=== PATIENT | male | born 1960 | race Caucasian/White ===

== ENCOUNTER → 2020-03-17 | Outpatient (CLI) | payer OTHER ==
[2020-03-17 09:51] LABS: BASO % 1 % (0-3); EOS # 0.2 x10^3/uL (0.0-0.7); EOS % 3 % (0-3); HEMATOCRIT 43.5 % (39.0-53.0); HEMOGLOBIN 14.7 g/dL (13.0-17.5); LYMPH # 1.6 x10^3/uL (1.0-4.8); LYMPH % 27 % (24-48); MEAN CORPUSCULAR HEMOGLOBIN 30 pg (25-35); MEAN CORPUSCULAR HGB CONC 34 g/dL (31-37); MEAN CORPUSCULAR VOLUME 90 fL (79-100); MONO # 0.5 x10^3/uL (0.0-1.1); MONO % 9 % (0-9); NEUT # 3.7 x10^3/uL (1.8-7.7); NEUT % 61 % (31-73); PLATELET COUNT 284 x10^3/uL (140-400); RED BLOOD COUNT 4.83 x10^6/uL (4.30-5.70); RED CELL DISTRIBUTION WIDTH 12.8 % (11.5-14.5)
[2020-03-17 10:02] LABS: PROTHROMBIN TIME PATIENT 12.4 SEC (11.7-14.0)
[2020-03-17 10:03] LABS: ALBUMIN 4.1 g/dL (3.4-5.0); C-REACTIVE PROTEIN 1.8 mg/L (0-3.3); CALCIUM 9.1 mg/dL (8.5-10.1); CREATININE 1.4 mg/dL (0.7-1.3); GFR 51.7
--- NOTE | 2020-03-17 11:36 | EKG ---
[facility] [address] [place] [id number] Test Date: 2020-03-17 Test Time: 11:33:44 Pat Name: YADIEL BLEDSOE Department: Room: Gender: Manager Background: : 1960 Requested By: TIESHA CESAR Order Number: [id number] Reading MD: Zana Mares Measurements Intervals [place] Rate: 80 P: 45 AL: 164 QRS: 54 QRSD: 96 T: 24 QT: 364 QTc: 423 Interpretive Statements SINUS RHYTHM SLIGHT NONSPECIFIC ST CHANGES RI6.02 No previous ECG available for comparison Electronically Signed On 03-18-2020 10:23:17 CDT by Zana Mares
--- NOTE | 2020-03-17 13:59 | RAD ---
PA and lateral chest x-ray without comparison for preop evaluation. FINDINGS: The lungs are clear. The cardiomediastinum is grossly unremarkable. No significant soft tissue or osseous abnormalities. IMPRESSION: 1. Normal chest x-ray. Electronically signed by: Kendall Espinosa MD (03/17/2020 1:56 PM) [id number]
[2020-03-18 03:08] LABS: HEMOGLOBIN A1C 5.6 % (4.8-5.6)
== END ==
LOC: SURGPAT 13:54
PROVIDERS: ATTEND Orthopaedic Surgery
DX: Z01.812 Encounter for preprocedural laboratory examination (principal); M17.11 Unilateral primary osteoarthritis, right knee; Z20.828 Contact with and (suspected) exposure to other viral communicable diseases; Z96.651 Presence of right artificial knee joint
CPT/HCPCS: 36415; 71046; 80048; 82040; 82306; 83036; 85025; 85610; 85730; 86140; 87641; 93005

== ENCOUNTER → 2020-03-28 | Outpatient (CLI) | payer OTHER ==
[~2020-03-28] MED LIST: FEXO180T81 PO; GLUC1TAB69 PO; MELO15TA23 PO; MULT-735 PO; OXYC5CAP PO; WARF-31 PO; WARF4TAB64 PO
== END ==
LOC: LAB 14:37
PROVIDERS: ATTEND Orthopaedic Surgery
DX: Z01.812 Encounter for preprocedural laboratory examination (principal); M17.11 Unilateral primary osteoarthritis, right knee; Z96.651 Presence of right artificial knee joint; Z20.828 Contact with and (suspected) exposure to other viral communicable diseases
CPT/HCPCS: C9803; U0003

== ENCOUNTER 2020-04-01 10:25 | Observation (INO) | payer OTHER ==
[~2020-04-01] VITALS: Ht 180.3 cm; Wt 92.5 kg
[~2020-04-01 10:25] MED LIST changes: +ACETAMINOPHEN 500 MG TABLET PO PRN; +GABAPENTIN 300 MG CAPSULE. PO PRN; +HYDROmorphone 2 MG/ML VIAL IV PRN; +IV RINGERS,LACTATED 1000ML 1,000 ML IV SCH; +LIDOCAINE 1% PF 2 ML VIAL. ID PRN; -MELO15TA23 PO; +MELOXICAM 7.5 MG TABLET PO PRN; +MIDAZOLAM HCL/PF 2 MG/2 ML VIAL. ONE; +MORPHINE SULFATE 5 MG, KETOROLAC 30MG VIAL 30 MG, ROPIVacaine 0.5% PF 60 ML, EPINEPHrin... INT ART ONE; +ONDANSETRON PF 4 MG/2 ML VIAL. IV PRN; -OXYC5CAP PO; +PROCHLORPERAZINE 10 MG/2 ML VIAL. IV PRN; +ROCURONIUM 50 MG/5 ML VIAL. ONE; +TRANEXAMIC ACID 1,000 MG in IV NS 50ML -- 1ST BAG INJ ONE; +TRANEXAMIC ACID 1,000 MG in IV NS 50ML -- 2ND BAG INJ ONE; -WARF-31 PO; -WARF4TAB64 PO; +fentaNYL PF VIAL 100 MCG/2 ML VIAL IV PRN; +fentaNYL PF VIAL 250 MCG/5 ML VIAL ONE
[2020-04-01] MEDS ORDERED: WARF-31 PO (11:06)
[2020-04-01] MEDS ORDERED: MELO15TA23 PO (11:07)
[2020-04-01] MEDS ORDERED: LIDOCAINE 2% PF 5 ML VIAL. ONE (11:30)
[2020-04-01] MEDS ORDERED: PROPOFOL 10 MG/ML (20ML) VIAL. IV ONE (11:30)
[2020-04-01 11:40] LABS: PROTHROMBIN TIME PATIENT 12.7 SEC (11.7-14.0)
[2020-04-01] MEDS ORDERED: VANCOMYCIN 1 GM VIAL. ONE (12:50)
--- NOTE | 2020-04-01 12:56 | HP ---
ADMIT DATE: 04/01/2020 CHIEF COMPLAINT: Right knee degenerative joint disease and pain. HISTORY OF PRESENT ILLNESS: The patient is a very active 60-year-old male, severely worsening knee pain over the past couple of years that has been only responsive to corticosteroid injections for a very short period of time. He has had no significant relief at all with viscosupplementation injections. He has modified his activities for lesser impact, but still wishes to bicycle and is extremely limited by his right knee pain. PAST MEDICAL HISTORY: Denies any. PAST SURGICAL HISTORY: Significant for previous right knee arthroscopies x 2 and left shoulder surgery. Father is . FAMILY HISTORY: Mother alive and healthy. SOCIAL HISTORY: Denies smoking and drug use. Occasional alcohol consumption socially couple times a month. He takes some multivitamins, ibuprofen and Aleve. ALLERGIES: He has no known drug allergies. REVIEW OF SYSTEMS: Denies any chest pain, shortness of breath, recent febrile illness or other constitutional symptoms. PHYSICAL EXAMINATION: VITAL SIGNS: Per admission sheet. HEENT: Atraumatic, normocephalic. HEART: Regular rate and rhythm. LUNGS: Clear to auscultation bilaterally. ABDOMEN: Benign. EXTREMITIES: Examination of the knee reveals left knee motion a little over 0-120 degrees and range of motion right knee is 0-110 degrees with discomfort at terminal flexion. He has no patellofemoral instability or tilt. Ligaments are otherwise stable. IMAGING: X-rays show advanced tricompartmental degenerative disease. IMPRESSION: Tricompartmental osteoarthritis, right knee. TREATMENT PLAN: I had gone over with him all the nonoperative treatment options, which he has essentially exhausted at this point including anti-inflammatory use, glucosamine topicals, injections and due to instability, bracing really is not expected to be a help. We talked the risks, benefits, postoperative course of total knee arthroplasty, possibility of premature wear or loosening, infection, continued pain, nerve or blood vessel damage, medical or other anesthetic complications among others and the usual recovery process and restrictions associated with the postoperative recovery process. All his questions were answered. He wishes to proceed with surgical evaluation and treatment, which will include [facility] observation to follow up. TIESHA CESAR MD DR: LOUISE/giovany JOB#: [id number] / [id number]
[2020-04-01] MEDS ORDERED: ONDANSETRON PF 4 MG/2 ML VIAL. ONE (13:05)
[2020-04-01] MEDS ORDERED: SEVOFLURANE > 120 MINUTES. IH ONE (13:05)
[2020-04-01] MEDS ORDERED: DEXAMETHASONE SOD PHOS 4 MG/ML VIAL ONE (13:05)
[2020-04-01] MEDS ORDERED: ROCURONIUM 50 MG/5 ML VIAL. ONE (13:32)
[2020-04-01] MEDS ORDERED: GLYCOPYRROLATE 1 MG/5 ML VIAL. ONE (14:48)
[2020-04-01] MEDS ORDERED: NEOSTIGMINE METHYLSULFATE 5 MG/5 ML SYRINGE. ONE (14:48)
[2020-04-01] MEDS ORDERED: fentaNYL PF VIAL 100 MCG/2 ML VIAL ONE (15:19)
[2020-04-01] MEDS ORDERED: MORPHINE SULFATE 2 MG/ML VIAL. ONE (15:59)
[2020-04-01] MEDS: MORPHINE SULFATE 2 MG/ML VIAL. IV PRN ×2 (16:02→16:10)
[2020-04-01] MEDS ORDERED: IV NORMAL SALINE 1000ML BAG 1,000 ML IV SCH (16:36)
[2020-04-01] MEDS ORDERED: FLU VACC QS 2020-21(6MOS+)/PF 0.5 ML SYRINGE. VAX IM ONE (16:45)
[2020-04-01] MEDS ORDERED: oxyCODONE IR 5 MG TABLET PO PRN (16:45)
[2020-04-01] MEDS ORDERED: DEXTROSE 50% 25 GM / 50ML DISP.SYRIN. IV PRN (16:45)
[2020-04-01] MEDS ORDERED: 0.9 % SODIUM CHLORIDE 10 ML DISP.SYRIN. IV PRN (16:45)
[2020-04-01] MEDS ORDERED: MORPHINE SULFATE 2 MG/ML VIAL. IVP PRN (16:45)
[2020-04-01] MEDS ORDERED: diphenhydrAMINE 50 MG/ML VIAL IVP PRN (16:45)
[2020-04-01] MEDS ORDERED: fentaNYL PF VIAL 100 MCG/2 ML VIAL IVP PRN (16:45)
[2020-04-01] MEDS ORDERED: CALCIUM CARBONATE 500 MG TAB.CHEW PO PRN (16:45)
[2020-04-01] MEDS ORDERED: PROCHLORPERAZINE 5 MG TABLET. PO PRN (16:45)
[2020-04-01 17:00] VITALS: BP 133/84
[2020-04-01] MEDS: FERROUS SULFATE 325 MG TABLET. PO SCH (17:00)
--- NOTE | 2020-04-01 17:05 | RAD ---
EXAM: Right knee, 2 views. HISTORY: Arthroplasty. COMPARISON: None. FINDINGS: 2 views of the right knee are obtained. There is a right knee arthroplasty in expected. There is soft tissue gas, joint fluid and a drain due to recent surgery. IMPRESSION: Right knee arthroplasty in expected position. Electronically signed by: Obdulia Hood MD (04/01/2020 5:02 PM) [id number]
--- NOTE | 2020-04-01 17:11 | PDOC4 ---
Operative Note Operative Note Date of surgery: 04/01/2020 Preoperative diagnosis: Right knee degenerative joint disease Postoperative diagnosis: Same Operative procedure: Right total knee arthroplasty Surgeon: Jong Assistants: Tutu Uribe nurse practitioner Anesthesia: General Estimated blood loss: 25 cc Complications: None Specimens: Cartilage surfaces to pathology Drains: Hemovac drain and intra-articular catheter Operative indications: Please see my dictated preoperative history and physical and clinic notes for detailed operative indications and note to the patient is a very active 60-year-old male with severe limitations due to his knee arthritis unresponsive to nonoperative management his desire is to continue to exercise and a nonimpact type manner particularly bicycling and other activities and we had gone through the possibility of infection continued pain premature wear or loosening medical or other anesthetic complications among others reviewed the recovery process and after informed consent was obtained he agrees to proceed with surgical evaluation and treatment Operative text: Patient was identified procedure verified patient placed in the supine position on the operating table. After adequate amounts of general anesthesia were administered the right lower extremity was prepped and draped in standard sterile fashion with a thigh tourniquet. After timeout was performed patient procedure identified and verified the right lower extremity was exsanguinated by Esmarch bandage tourniquet inflated to 300 mmHg. A midline incision was made with a mid vastus extending to a medial parapatellar approach. Patella was everted fat pad was excised distal femur was drilled and the distal femur was cut with a standard cut. Proximal tibia cut was made with the extra- articular cutting jig adjusted to achieve alignment with the second toe and center of the ankle joint. Distal femur was sized at a size 6 AP and chamfer cuts were made and flexion extension balancing carried out after recutting the tibia to achieve a size 10 spacer. A size 7 tibial component was placed along with a size 6 femur [employer] journey standard component with a dished trial component with a 10 mm spacer. Excellent ligament balance and stability were noted both in flexion and extension. Osteophytes were trimmed from the patella and I elected to prepare for a 29 mm biconvex patella which had excellent tracking. He had significant synovitis and partial synovectomy was performed particularly in the worst involvement superiorly and superior laterally. Tibia was drilled and broached and femoral lugs were drilled. Trial components were removed through irrigation carried out with normal saline solution. The following components were then cemented in place with polymethylmethacrylate cement: A size 7 journey tibial component. A size 6 cruciate retaining journey 2 Oxinium femoral component. Excess cement was removed and after the trial spacer was removed, a dished spacer 10 mm thickness was locked in place. Dilute Betadine lavage was then used and followed up with normal saline solution and pulse lavage. Intra-articular mixture was injected periosteally and throughout the joint capsule. Hemovac drain and intra- articular catheter were then placed. 1 g vancomycin was placed in the knee joint and closure of the medial approach was carried out with running #1 PDS strata fix suture. Subcutaneous closure with buried Vicryl suture subcuticular closure with 3-0 strata fix Monocryl. Norma dressing was placed patient was returned to recovery room in stable condition having tolerated procedure well toes were noted to be warm pink following deflation of the tourniquet. Tutu Uribe nurse practitioner was present for the procedure and assisted in the pa tient positioning prepping draping retraction closure and dressings. TIESHA CESAR MD Apr 01, 2020 17:11
[2020-04-01 17:30] VITALS: BP 126/79
[2020-04-01] MEDS ORDERED: WARFARIN 7.5 MG TABLET. PO ONE (17:30)
--- NOTE | 2020-04-01 17:35 | NUR ---
Patient arrived around 1700 from PACU in a bed. at bedside. IV infusing in left hand without any concerns noted. Hemovac and IAC in place on right leg. ZHANE wrap covering RONY with green light flashing. Gil hose and SCD on LLE. Upon arrival to the unit the patient needed to use the restroom. He felt dizzy/nauseous upon transferring to and from the bathroom but refused nausea medication at this time as well as pain medication. BP a little low around 106/72 with a Pulse of 92. He is now sitting up in his chair eating dinner stating he is starting to feel much better. Will continue to monitor.
[2020-04-01] MEDS: KETOROLAC 30MG VIAL 30 MG, BUPIVACAINE MPF 0.25% 20 ML, EPINEPHrine 0.5 MG in TOTAL VOL... INT ART SCH (17:51)
[2020-04-01 18:00] VITALS: BP 127/82
[2020-04-01 18:30] VITALS: BP 132/80
[2020-04-01 19:30] VITALS: BP 150/83
[2020-04-01] MEDS: ZOLPIDEM 5 MG TABLET. PO PRN (22:41)
[2020-04-01 23:00] VITALS: BP 141/81
[2020-04-02] MEDS: ZOLPIDEM 5 MG TABLET. PO PRN ×2 (00:25→21:36)
[2020-04-02 03:00] VITALS: BP 127/80
[2020-04-02] MEDS: KETOROLAC 30MG VIAL 30 MG, BUPIVACAINE MPF 0.25% 20 ML, EPINEPHrine 0.5 MG in TOTAL VOL... INT ART SCH (05:08)
[2020-04-02 05:17] LABS: HEMATOCRIT 34.7 % (39.0-53.0); HEMOGLOBIN 12.1 g/dL (13.0-17.5); RED BLOOD COUNT 3.87 x10^6/uL (4.30-5.70); RED CELL DISTRIBUTION WIDTH 12.8 % (11.5-14.5); WHITE BLOOD COUNT 15.5 x10^3/uL (4.0-11.0)
[2020-04-02 05:22] LABS: PROTHROMBIN TIME PATIENT 13.8 SEC (11.7-14.0)
[2020-04-02] MEDS ORDERED: MAGNESIUM HYDROXIDE 2,400 MG/30 ML ORAL.SUSP. PO PRN (06:00)
[2020-04-02] MEDS: traMADol 50 MG TABLET PO SCH ×3 (06:14→17:04)
[2020-04-02 06:39] VITALS: BP 127/80
--- NOTE | 2020-04-02 08:00 | NUR ---
Mekhi is sitting up reading a book after eating breakfast. he denies nausea vomiting. ambulated to bathroom without complaints. will give last antibiotic; saline lock patent.
--- NOTE | 2020-04-02 08:11 | PDOC ---
ORTHO PROGRESS NOTES DATE: 04/02/20 TIME: 08:08 Subjective Patient states pain being painful during the night but it has eased up somewhat. Post-op Day: 1 Procedure Right total knee arthroplasty Vitals Vital Signs Date Time Temp Pulse Resp B/P (MAP) Pulse Ox O2 Delivery O2 Flow Rate FiO2 04/02/20 06:39 98.2 59 20 127/80 (96) 98 Room Air 98.2 04/01/20 16:10 8.0 Labs Laboratory Tests Test 04/01/20 10:45 04/02/20 04:50 Prothrombin Time 12.7 SEC (11.7-14.0) 13.8 SEC (11.7-14.0) Prothromb Time International Ratio 1.0 (0.8-1.1) 1.1 (0.8-1.1) Activated Partial Thromboplast Time 29 SEC (24-38) White Blood Count 15.5 x10^3/uL (4.0-11.0) Red Blood Count 3.87 x10^6/uL (4.30-5.70) Hemoglobin 12.1 g/dL (13.0-17.5) Hematocrit 34.7 % (39.0-53.0) Mean Corpuscular Volume 90 fL (79-100) Mean Corpuscular Hemoglobin 31 pg (25-35) Mean Corpuscular Hemoglobin Concent 35 g/dL (31-37) Red Cell Distribution Width 12.8 % (11.5-14.5) Platelet Count 284 x10^3/uL (140-400) Laboratory Tests Test 04/01/20 10:45 04/02/20 04:50 Prothrombin Time 12.7 SEC (11.7-14.0) 13.8 SEC (11.7-14.0) Prothromb Time International Ratio 1.0 (0.8-1.1) 1.1 (0.8-1.1) Activated Partial Thromboplast Time 29 SEC (24-38) White Blood Count 15.5 x10^3/uL (4.0-11.0) Red Blood Count 3.87 x10^6/uL (4.30-5.70) Hemoglobin 12.1 g/dL (13.0-17.5) Hematocrit 34.7 % (39.0-53.0) Mean Corpuscular Volume 90 fL (79-100) Mean Corpuscular Hemoglobin 31 pg (25-35) Mean Corpuscular Hemoglobin Concent 35 g/dL (31-37) Red Cell Distribution Width 12.8 % (11.5-14.5) Platelet Count 284 x10^3/uL (140-400) Notes Awake and alert sitting up in a chair at bedside Assessment and Plan Postop day #1 status post right total knee arthroplasty. Motor and sensation intact distally at the right lower extremity. Dressing is dry and intact. Up with PT today. We did discuss his use of exercise with his bicycle after recovery. RICKEY RICHTER APRN Apr 02, 2020 08:11
[2020-04-02] MEDS: MULTIVITAMIN with MINERAL TABLET. PO SCH (08:51)
[2020-04-02] MEDS: ACETAMINOPHEN 500 MG TABLET PO SCH ×3 (08:51→21:36)
[2020-04-02] MEDS: MELOXICAM 7.5 MG TABLET PO SCH (08:51)
[2020-04-02] MEDS: FERROUS SULFATE 325 MG TABLET. PO SCH ×2 (08:51→17:04)
--- NOTE | 2020-04-02 10:45 | NUR ---
sarkis is in therapy feeling lightheaded and became hypotensive. he is reclinened and blood pressure is 67/48 50. started feeling better and sat up. He immediately started feeling faint. blood pressure was 63/34 1000cc ns began at 250 cc hr and reclined. he had an episode where he became unresponsive and did not respond to pain. the episode lasted approx 10 sec. skin became cold and clammy. then woke up all of sudden and was alert and oriented x4. blood pressure was 110/63 hr 73. transferred to recliner with full body lift. placed in room at full recline.
[2020-04-02 11:02] VITALS: BP 110/74
[2020-04-02] MEDS ORDERED: IV NORMAL SALINE 1000ML BAG 1,000 ML IV ONE (11:15)
--- NOTE | 2020-04-02 11:45 | PDOC2 ---
CONSULT Date of Consult Date of Consult DATE: 04/02/20 TIME: 11:45 Reason for Consult Reason for Consult: Hypotension Referring Physician Referring Physician: Dr. Phill Sunshine Identification/Chief Complaint Chief Complaint Syncope Source Source: Caregiver, Chart review, Patient History of Present Illness Reason for Visit: Mr Enrique is a 60yo M retired [employer] with no PMHx who was admitted for right TKA for progressive OA not responsive to synthetic hyaluronic acid injections or corticosteroid injections. He is s/p TKA on 04/01/2020 and Internal Medicine has been consulted for a syncopal episode with associated hypotension. His is bedside, notes that 30 minutes after taking MVI, iron this morning his BP was in the 70s and he passed out while sitting up in his chair. He awakened after 250cc of NSS and laying supine for 15 minutes. He does note prior h/o vasovagal syncope when he was younger in the [employer]. He had a treadmill cardiac stress test negative for EKG changes last week and pre-op EKG with no abnormalities Repeat EKG today does show TWI in lead II and I. He has no CP or SOB. HR in 50s, BP 120 systolic now. Pain well controlled. has not had a BM, notes he was tania ting until he gets home, is a bit anxious. Hb post-op 12. He wants to get out of the hospital soon and get back on his bicycle Past Medical History Cardiovascular: No pertinent hx Past Surgical History Past Surgical History: Arthroscopy (Right knee x2, left shoulder), Total knee replacement (Right) Family History Family History Father , mother living Family History: Cancer (Breast in mother, throat in brother) Social History Social History Denies smoking and drug use. Occasional alcohol consumption socially couple times a month. He takes some multivitamins, ibuprofen and Aleve. No ALCOHOL: rare Drugs: None Lives: with Family Domestic Violence: Neg Current Medications Current Medications Current Medications Morphine Sulfate 5 mg/Ketorolac Tromethamine 30 mg/Ropivacaine 60 ml/Epinephrine HCl 0.5 mg/Sodium Chloride 100 ml @ 100 mls/hr 1X ONCE INT ART Last administered on 04/01/20at 14:36; Start 04/01/20 at 06:00; Stop 04/01/20 at 06:59; Status DC Ondansetron HCl (Zofran) 4 mg PRN Q6HRS PRN IV NAUSEA/VOMITING; Start 04/01/20 at 07:00; Stop 04/02/20 at 06:59; Status DC Fentanyl Citrate (Fentanyl 2ml Vial) 50 mcg PRN Q5MIN PRN IV MODERATE TO SEVERE PAIN; Start 04/01/20 at 07:00; Stop 04/02/20 at 06:59; Status DC Morphine Sulfate (Morphine Sulfate) 1 mg PRN Q10MIN PRN IV SEVERE PAIN 7-10 Last administered on 04/01/20at 16:10; Start 04/01/20 at 07:00; Stop 04/02/20 at 06:59; Status DC Ringer's Solution 1,000 ml @ 30 mls/hr Q24H IV Last administered on 04/01/20at 11:09; Start 04/01/20 at 07:00; Stop 04/01/20 at 18:59; Status DC Lidocaine HCl (Xylocaine-Mpf 1% 2ml Vial) 2 ml PRN 1X PRN ID PRIOR TO IV START; Start 04/01/20 at 07:00; Stop 04/02/20 at 06:59; Status DC Hydromorphone HCl (Dilaudid) 0.5 mg PRN Q10MIN PRN IV SEV PAIN, Second choice; Start 04/01/20 at 07:00; Stop 04/02/20 at 06:59; Status DC Prochlorperazine Edisylate (Compazine) 5 mg PACU PRN PRN IV NAUSEA, MRX1; Start 04/01/20 at 07:00; Stop 04/02/20 at 06:59; Status DC Meloxicam (Mobic) 15 mg 1X PREOP PRN PO PRIOR TO PROCEDURE Last administered on 04/01/20at 11:10; Start 04/01/20 at 06:00; Stop 04/01/20 at 18:00; Status DC Gabapentin (Neurontin) 600 mg 1X PREOP PRN PO PRIOR TO PROCEDURE Last administered on 04/01/20at 11:10; Start 04/01/20 at 06:00; Stop 04/01/20 at 18:00; Status DC Acetaminophen (Tylenol) 1,000 mg 1X PREOP PRN PO PRIOR TO PROCEDURE Last administered on 04/01/20at 11:10; Start 04/01/20 at 06:00; Stop 04/01/20 at 18:00; Status DC Cefazolin Sodium/ Dextrose 50 ml @ 100 mls/hr 1X PREOP PRN IV PRIOR TO PROCEDURE Last administered on 04/01/20at 13:00; Start 04/01/20 at 06:00; Stop 04/01/20 at 18:00; Status DC Tranexamic Acid 1000 mg/Sodium Chloride 60 ml @ 60 mls/hr 1X PERIOP ONCE INJ ; Start 04/01/20 at 06:00; Stop 04/01/20 at 06:59; Status DC Tranexamic Acid 1000 mg/Sodium Chloride 60 ml @ 60 mls/hr 1X PERIOP ONCE INJ Last administered on 04/01/20at 15:00; Start 04/01/20 at 08:00; Stop 04/01/20 at 08:59; Status DC Midazolam HCl (Versed) 2 mg STK-MED ONCE .ROUTE ; Start 04/01/20 at 07:17; Stop 04/01/20 at 07:17; Status DC Fentanyl Citrate (Fentanyl 5ml Vial) 250 mcg STK-MED ONCE .ROUTE ; Start 04/01/20 at 07:17; Stop 04/01/20 at 07:17; Status DC Rocuronium [place] (Zemuron) 50 mg STK-MED ONCE .ROUTE ; Start 04/01/20 at 07:17; Stop 04/01/20 at 07:18; Status DC Lidocaine HCl (Lidocaine Pf 2% Vial) 5 ml STK-MED ONCE .ROUTE ; Start 04/01/20 at 11:30; Stop 04/01/20 at 11:30; Status DC Propofol (Diprivan) 200 mg STK-MED ONCE IV ; Start 04/01/20 at 11:30; Stop 04/01/20 at 11:30; Status DC Vancomycin HCl (Vancomycin) 1 gm STK-MED ONCE .ROUTE Last administered on 04/01/20at 14:48; Start 04/01/20 at 12:50; Stop 04/01/20 at 12:51; Status DC Ondansetron HCl (Zofran) 4 mg STK-MED ONCE .ROUTE ; Start 04/01/20 at 13:05; Stop 04/01/20 at 13:05; Status DC Dexamethasone Sodium Phosphate (Decadron) 4 mg STK-MED ONCE .ROUTE ; Start 04/01/20 at 13:05; Stop 04/01/20 at 13:05; Status DC Sevoflurane (Ultane) 90 ml STK-MED ONCE IH ; Start 04/01/20 at 13:05; Stop 04/01/20 at 13:06; Status DC Rocuronium [place] (Zemuron) 50 mg STK-MED ONCE .ROUTE ; Start 04/01/20 at 1 3:32; Stop 04/01/20 at 13:32; Status DC Neostigmine [place] (Neostigmine Methylsulfate) 5 mg STK-MED ONCE .ROUTE ; Start 04/01/20 at 14:48; Stop 04/01/20 at 14:49; Status DC Glycopyrrolate (Robinul) 1 mg STK-MED ONCE .ROUTE ; Start 04/01/20 at 14:48; Stop 04/01/20 at 14:49; Status DC Fentanyl Citrate (Fentanyl 2ml Vial) 100 mcg STK-MED ONCE .ROUTE ; Start 04/01/20 at 15:19; Stop 04/01/20 at 15:19; Status DC Morphine Sulfate (Morphine Sulfate) 2 mg STK-MED ONCE .ROUTE ; Start 04/01/20 at 15:59; Stop 04/01/20 at 15:59; Status DC Morphine Sulfate (Morphine Sulfate) 2 mg PRN Q1HR PRN IVP PAIN; Start 04/01/20 at 16:45 Fentanyl Citrate (Fentanyl 2ml Vial) 25 mcg PRN Q1HR PRN IVP PAIN, 2nd CHOICE; Start 04/01/20 at 16:45 Diphenhydramine HCl (Benadryl) 25 mg PRN Q6HRS PRN IVP ITCHING; Start 04/01/20 at 16:45 Warfarin Sodium (Coumadin Per Pharmacy) 1 each PRN DAILY PRN MC SEE COMMENTS; Start 04/01/20 at 16:45 Multivitamins (Thera M Plus) 1 tab DAILY PO Last administered on 04/02/20at 08:51; Start 04/02/20 at 09:00 Ferrous Sulfate (Feosol) 325 mg BIDWMEALS PO Last administered on 04/02/20at 08:51; Start 04/01/20 at 17:00 Sodium Chloride 1,000 ml @ 40 mls/hr Q24H IV ; Start 04/01/20 at 16:36; Stop 04/02/20 at 05:10; Status DC Prochlorperazine Maleate (Compazine) 10 mg PRN Q4HRS PRN PO Nausea/vomiting, 2nd choice; Start 04/01/20 at 16:45; Stop 04/02/20 at 11:44; Status DC Magnesium Hydroxide (Milk Of Magnesia) 2,400 mg 1X PRN PRN PO CONSTIPATION; Start 04/02/20 at 06:00; Stop 04/03/20 at 05:59 Zolpidem Tartrate (Ambien) 5 mg PRN QHS PRN PO INSOMNIA, MAY REPEAT IN 1HR Last administered on 04/02/20at 00:25; Start 04/01/20 at 16:45 Calcium Carbonate/ Glycine (Tums) 500 mg PRN QID PRN PO INDIGESTION; Start 04/01/20 at 16:45 Ketorolac Tromethamine 30 mg/Bupivacaine HCl 20 ml/ Epinephrine HCl 0.5 mg/ Miscellaneous 43 ml @ 258 mls/hr Q12H INT ART Last administered on 04/02/20at 05:08; Start 04/01/20 at 18:00; Stop 04/02/20 at 06:09; Status DC Sodium Chloride (Normal Saline Flush) 10 ml QSHIFT PRN IV AFTER MEDS AND BLOOD DRAWS; Start 04/01/20 at 16:45 Acetaminophen (Tylenol) 1,000 mg Q6H PO Last administered on 04/02/20at 08:51; Start 04/02/20 at 09:00 Meloxicam (Mobic) 15 mg DAILY PO Last administered on 04/02/20at 08:51; Start 04/02/20 at 09:00 Tramadol HCl (Ultram) 50 mg Q6H PO Last administered on 04/02/20at 06:14; Start 04/02/20 at 06:00 Ondansetron HCl (Zofran) 4 mg PRN Q6HRS PRN IVP Nausea/vomiting, 1st choice; Start 04/02/20 at 12:00 Ondansetron HCl (Zofran Odt) 4 mg PRN Q6HRS PRN PO Nausea/vomiting, 1st choice; Start 04/02/20 at 12:00 Oxycodone HCl (Roxicodone) 5 mg PRN Q4HRS PRN PO Pain score 4-6; Start 04/01/20 at 16:45 Dextrose (Dextrose 50%-Water Syringe) 12.5 gm PRN Q15MIN PRN IV SEE COMMENTS; Start 04/01/20 at 16:45 Cefazolin Sodium/ Dextrose 50 ml @ 100 mls/hr Q6H IV Last administered on 04/02/20at 08:51; Start 04/01/20 at 21:00; Stop 04/02/20 at 09:29; Status DC Influenza Virus Vaccine Quadrival (Fluzone Quad Syringe) 0.5 ml ONCE ONCE VAX IM ; Start 04/01/20 at 16:45; Stop 04/01/20 at 17:07; Status DC Warfarin Sodium (Coumadin) 7.5 mg 1X WARF ONCE PO Last administered on 04/01/20at 17:50; Start 04/01/20 at 17:30; Stop 04/01/20 at 17:31; Status DC Sodium Chloride 1,000 ml @ 0 mls/hr 1X ONCE IV ; Start 04/02/20 at 11:15; Stop 04/02/20 at 11:26; Status DC Active Scripts Active Reported Meloxicam 15 Mg Tablet 15 Mg PO X1 PRN Warfarin Sodium 5 Mg Tablet 5 Mg PO X1 PRN Em Allergy (Fexofenadine Hcl) 180 Mg Tablet 180 Mg PO DAILY Osteo Bi-Flex Caplet (Glucosamine Hcl/Chondr Reynolds A Na) 1 Each Tablet 1 Each PO DAILY One-Daily Multi-Vitamin (Multivitamin) 1 Each Tablet 1 Each PO DAILY Allergies Allergies: Coded Allergies: No Known Drug Allergies (Unverified , 03/31/20) ROS General: No: Chills, Night Sweats, Fatigue, Malaise, Appetite, Other PSYCHOLOGICAL ROS: No: Anxiety, Behavioral Disorder, Concentration difficultie, Decreased libido, Depression, Disorientation, Hallucinations, Hostility, Irritablity, Memory difficulties, Mood Swings, Obsessive thoughts, Physical abuse, Sexual abuse, Sleep disturbances, Suicidal ideation, Other Eyes: No Blurry vision, No Decreased vision, No Double vision, No Dry eyes, No Excessive tearing, No Eye Pain, No Itchy Eyes, No Loss of vision, No Photophobia, No Scotomata, No Uses contacts, No Uses glasses, No Other HEENT: No: Heacaches, Visual Changes, Hearing change, Nasal congestion, Nasal discharge, Oral lesions, Sinus pain, Sore Throat, Epistaxis, Sneezing, Snoring, Tinnitus, Vertigo, Vocal changes, Other ALLERGY AND IMMUNOLOGY: No: Hives, Insect Bite Sensitivity, Itchy/Watery Eyes, Nasal Congestion, Post Nasal Drip, Seasonal Allergies, Other Hematological and Lymphatic: No: Bleeding Problems, Blood Clots, Blood Transfusions, Brusing, Night Sweats, Pallor, Swollen Lymph Nodes, Other ENDOCRINE: No: Breast Changes, Galactorrhea, Hair Pattern Changes, Hot Flashes, Malaise/lethargy, Mood Swings, Palpitations, Polydipsia/polyuria, Skin Changes, Temperature Intolerance, Unexpected Weight Changes, Other Breast: No New/Changing Breast Lumps, No Nipple changes, No Nipple discharge, No Other Respiratory: No: Cough, Hemoptysis, Orthopnea, Pleuritic Pain, Shortness of breath, SOB with excertion, Sputum Changes, Stridor, Tachypnea, Wheezing, Other Cardiovascular: No Chest Pain, No Palpitations, No Orthopnea, No Paroxysmal Noc. Dyspnea, No Edema, No Lt Headedness, No Other Gastrointestinal: No Nausea, No Vomiting, No Abdominal Pain, No Diarrhea, No Constipation, No Melena, No Hematochezia, No Other Genitourinary: No Dysuria, No Frequency, No Incontinence, No Hematuria, No Retention, No Discharge, No Urgency, No Pain, No Flank Pain, No Other, No , No , No , No , No , No , No Musculoskeletal: No Gait Disturbance, No Joint Pain, No Joint Stiffness, No Joint Swelling, No Muscle Pain, No Muscular Weakness, No Pain In:, No Swelling In:, No Other Neurological: No Behavorial Changes, No Bowel/Bladder ControlChng, No Confusion, No Dizziness, No Gait Disturbance, No Headaches, No Impaired Coord/balance, No Memory Loss, No Numbness/Tingling, No Seizures, No Speech Problems, No Tremors, No Visual Changes, No Weakness, No Other Skin: No Dry Skin, No Eczema, No Hair Changes, No Lumps, No Mole Changes, No Mottling, No Nail Changes, No Pruritus, No Rash, No Skin Lesion Changes, No Other, No Acne Physical Exam Physical Exam Appears younger than stated age. General: Alert, Oriented X3, Cooperative, No acute distress HEENT: Atraumatic, PERRLA, Mucous membr. moist/pink Lungs: Clear to auscultation, Normal air movement Heart: Regular rate, Normal S1, Normal S2, No murmurs Abdomen: Normal bowel sounds, Soft, No tenderness, No hepatosplenomegaly, No masses Extremities: No clubbing, No cyanosis, No edema, Normal pulses, Other (Right knee in ZHANE wrap) Skin: No rashes, No breakdown Neuro: Normal speech, Strength at 5/5 X4 ext, Normal tone, Sensation intact, Cranial nerves 3-12 NL, Reflexes 2+ Psych/Mental Status: Mental status NL, Mood NL MUSCULOSKELETAL: No deformity, Abnormal exam of right (ROM not tested on right knee) Vitals VITALS Vital Signs Date Time Temp Pulse Resp B/P (MAP) Pulse Ox O2 Delivery O2 Flow Rate FiO2 04/02/20 08:00 Room Air 04/02/20 06:39 98.2 59 20 127/80 (96) 98 98.2 04/01/20 16:10 8.0 Labs Labs Laboratory Tests Test 04/01/20 10:45 04/02/20 04:50 Prothrombin Time 12.7 SEC (11.7-14.0) 13.8 SEC (11.7-14.0) Prothromb Time International Ratio 1.0 (0.8-1.1) 1.1 (0.8-1.1) Activated Partial Thromboplast Time 29 SEC (24-38) White Blood Count 15.5 x10^3/uL (4.0-11.0) Red Blood Count 3.87 x10^6/uL (4.30-5.70) Hemoglobin 12.1 g/dL (13.0-17.5) Hematocrit 34.7 % (39.0-53.0) Mean Corpuscular Volume 90 fL (79-100) Mean Corpuscular Hemoglobin 31 pg (25-35) Mean Corpuscular Hemoglobin Concent 35 g/dL (31-37) Red Cell Distribution Width 12.8 % (11.5-14.5) Platelet Count 284 x10^3/uL (140-400) Laboratory Tests Test 04/02/20 04:50 White Blood Count 15.5 x10^3/uL (4.0-11.0) Red Blood Count 3.87 x10^6/uL (4.30-5.70) Hemoglobin 12.1 g/dL (13.0-17.5) Hematocrit 34.7 % (39.0-53.0) Mean Corpuscular Volume 90 fL (79-100) Mean Corpuscular Hemoglobin 31 pg (25-35) Mean Corpuscular Hemoglobin Concent 35 g/dL (31-37) Red Cell Distribution Width 12.8 % (11.5-14.5) Platelet Count 284 x10^3/uL (140-400) Prothrombin Time 13.8 SEC (11.7-14.0) Prothromb Time International Ratio 1.1 (0.8-1.1) Images Images Right Knee XR: 2 views of the right knee are obtained. There is a right knee arthroplasty in expected. There is soft tissue gas, joint fluid and a drain due to recent surgery. IMPRESSION: Right knee arthroplasty in expected position. Assessment/Plan Assessment/Plan A/P: Syncope - vasovagal given his vital signs and response to fluids and laying supine. On DVT ppx with warfarin, no concern for PE. Will trend cardiac enzymes given TWI which could be demand ischemia from syncopal event. No indication for head imaging given normal neuro examination. Trend Hb as well Tricompartmental osteoarthritis, right knee - s/p right TKA with no complications Anemia - blood loss, on iron, will trend. FEN - General diet PPX - warfarin FULL CODE Dispo - Observation post-op We will continue to follow while inpatient, thank you for this consult! with any questions or concerns NADEEN MYERS MD Apr 02, 2020 11:45
--- NOTE | 2020-04-02 11:45 | NUR ---
feeling better at this time blood pressure remains 110/ 57 hr 68 head of the recliner elevated to [address] Redd returns consult. not ready to eat at this time.
[2020-04-02] MEDS ORDERED: ONDANSETRON ODT 4 MG TAB.RAPDIS. PO PRN (12:00)
[2020-04-02] MEDS ORDERED: ONDANSETRON PF 4 MG/2 ML VIAL. IVP PRN (12:00)
--- NOTE | 2020-04-02 12:15 | NUR ---
continues to be reclined at 30 degrees. departs. ekg completed. dr lockwood saw. iv fluids continue. blood pressure is 108/54 hr-68.
--- NOTE | 2020-04-02 12:50 | NUR ---
Pharmacy Warfarin Dosing Note S:Pharmacy consulted to assist with anticoagulation therapy started 04/01/20 with target INR: 1.6 - 2.5 O:YADIEL BLEDSOE is a 60 year old M with TKA LABS: Last INR: 1.1 Last HGB: 12.1 Last HCT: 34.7 Last PLT: 284 Last dose of 7.5 mg given on 04/01/20 at 1750 Previous Regimen: Vitamin K given: Drug Interaction Changes: Ongoing Drug Interactions: A:INR of 1.1 is below desired range. Target range for this patient is: 1.6 - 2.5 P: Warfarin dose: 5 mg Today at 1600 Bridge Therapy: None Next INR due 04/03/20. Pharmacy anticoagulation service will continue to follow. KEYNO ALLRED RPH, 04/02/20 1250
--- NOTE | 2020-04-02 13:27 | NUR ---
blood pressure is 135/89 hr 79. will attempt rehab class. ivf continue at 250cc hr. He states he does not feel faint at this time.. went by recliner
[2020-04-02 15:15] VITALS: BP 131/80
[2020-04-02] MEDS ORDERED: WARFARIN 5 MG TABLET. PO ONE (16:00)
[2020-04-02 18:30] VITALS: BP 123/74
[2020-04-02 19:22] LABS: HEMATOCRIT 31.9 % (39.0-53.0); HEMOGLOBIN 10.9 g/dL (13.0-17.5); RED BLOOD COUNT 3.55 x10^6/uL (4.30-5.70); RED CELL DISTRIBUTION WIDTH 12.6 % (11.5-14.5)
--- NOTE | 2020-04-03 00:10 | NUR ---
Stat troponin ordered, spoke w/ Becky in lab re: new order.
[2020-04-03] MEDS: ACETAMINOPHEN 500 MG TABLET PO SCH ×3 (03:00→14:25)
[2020-04-03 05:38] LABS: HEMATOCRIT 31.4 % (39.0-53.0); HEMOGLOBIN 10.9 g/dL (13.0-17.5)
[2020-04-03 05:55] VITALS: BP 146/76
[2020-04-03] MEDS: traMADol 50 MG TABLET PO SCH ×3 (05:57→12:00)
[2020-04-03 05:59] LABS: PROTHROMBIN TIME PATIENT 16.5 SEC (11.7-14.0)
--- NOTE | 2020-04-03 07:11 | NUR ---
No syncopal episodes this shift. In recliner, drinking coffee. Attempted to call lab re: troponin results.
--- NOTE | 2020-04-03 08:00 | NUR ---
spoke with lab. they sybil troponin with am lab but no result. they say they have no order. there are 3 orders for troponin in but only 2 results. placed another order per lab so can get last or 3rd result. Mekhi is up in chair. no complaints of feelings of lightheadedness or faintness. up in chair drinking coffee. Dr. Sunshine here --ok to go home if ok with Dr. Redd. explained would be this evening.
[2020-04-03] MEDS ORDERED: OXYC5CAP PO (08:39)
--- NOTE | 2020-04-03 08:44 | DISCH ---
DISCHARGE INSTRUCTIONS Condition on Discharge Condition on Discharge: Stable Activity After Discharge Activity Instructions for Disc: Progressive ambulation Exercise Instruction after Dis: Exercise per therapy Weight Bearing Status after Di: As tolerated Diet after Discharge Diet after Discharge: Regular Wound Incision Care Wound/Incision Care: Do not change dressing (keep trang dressing intact, cut and fold over tail when suction stops) Community/Resources/Services Services at Discharge: PT EVALUATE & TREAT Contacting the DRJayro after DC Call your doctor for: Concerns you may have Follow-Up Follow up with: Dr. Sunshine 2 weeks postop Warfarin Follow-Up Warfarin Follow UP: [facility] to direct dose and testing TIESHA SUNSHINE MD Apr 03, 2020 08:44
[2020-04-03] MEDS: MULTIVITAMIN with MINERAL TABLET. PO SCH (09:03)
[2020-04-03] MEDS: MELOXICAM 7.5 MG TABLET PO SCH (09:03)
[2020-04-03] MEDS: FERROUS SULFATE 325 MG TABLET. PO SCH (09:03)
--- NOTE | 2020-04-03 09:03 | PDOC ---
PROGRESS NOTES Date of Service DATE: 04/03/20 TIME: 09:00 Subjective Subjective Problems overnight: Feeling good today getting up and around well pain reasonably controlled and has no complaints. He does note a remote history of vasovagal episode giving blood many years ago when in the , no incidences or complaints since yesterday Objective Vital Signs Vital Signs Date Time Temp Pulse Resp B/P (MAP) Pulse Ox O2 Delivery O2 Flow Rate FiO2 04/03/20 07:03 20 Room Air 04/03/20 05:55 98.7 86 146/76 (99) 97 98.7 04/01/20 16:10 8.0 Physical Exam Right knee shows excellent range of motion stability tracking calf is soft distal neurovascular status intact dressing with minimal spotty bloody drainage Labs Laboratory Tests Test 04/01/20 10:45 04/02/20 04:50 04/02/20 13:20 04/02/20 19:00 Prothrombin Time 12.7 SEC (11.7-14.0) 13.8 SEC (11.7-14.0) Prothromb Time International Ratio 1.0 (0.8-1.1) 1.1 (0.8-1.1) Activated Partial Thromboplast Time 29 SEC (24-38) White Blood Count 15.5 x10^3/uL (4.0-11.0) 12.0 x10^3/uL (4.0-11.0) Red Blood Count 3.87 x10^6/uL (4.30-5.70) 3.55 x10^6/uL (4.30-5.70) Hemoglobin 12.1 g/dL (13.0-17.5) 10.9 g/dL (13.0-17.5) Hematocrit 34.7 % (39.0-53.0) 31.9 % (39.0-53.0) Mean Corpuscular Volume 90 fL (79-100) 90 fL (79-100) Mean Corpuscular Hemoglobin 31 pg (25-35) 31 pg (25-35) Mean Corpuscular Hemoglobin Concent 35 g/dL (31-37) 34 g/dL (31-37) Red Cell Distribution Width 12.8 % (11.5-14.5) 12.6 % (11.5-14.5) Platelet Count 284 x10^3/uL (140-400) 277 x10^3/uL (140-400) Troponin I Quantitative < 0.017 ng/mL (0.000-0.055) < 0.017 ng/mL (0.000-0.055) Test 04/03/20 04:40 Hemoglobin 10.9 g/dL (13.0-17.5) Hematocrit 31.4 % (39.0-53.0) Mean Corpuscular Hemoglobin Concent 35 g/dL (31-37) Prothrombin Time 16.5 SEC (11.7-14.0) Prothromb Time International Ratio 1.4 (0.8-1.1) Troponin I Quantitative < 0.017 ng/mL (0.000-0.055) Laboratory Tests Test 04/02/20 13:20 04/02/20 19:00 04/03/20 04:40 Troponin I Quantitative < 0.017 ng/mL (0.000-0.055) < 0.017 ng/mL (0.000-0.055) < 0.017 ng/mL (0.000-0.055) White Blood Count 12.0 x10^3/uL (4.0-11.0) Red Blood Count 3.55 x10^6/uL (4.30-5.70) Hemoglobin 10.9 g/dL (13.0-17.5) 10.9 g/dL (13.0-17.5) Hematocrit 31.9 % (39.0-53.0) 31.4 % (39.0-53.0) Mean Corpuscular Volume 90 fL (79-100) Mean Corpuscular Hemoglobin 31 pg (25-35) Mean Corpuscular Hemoglobin Concent 34 g/dL (31-37) 35 g/dL (31-37) Red Cell Distribution Width 12.6 % (11.5-14.5) Platelet Count 277 x10^3/uL (140-400) Prothrombin Time 16.5 SEC (11.7-14.0) Prothromb Time International Ratio 1.4 (0.8-1.1) Imaging Postop x-rays show excellent alignment right total knee arthroplasty Assessment Assessment POD#2 right total knee arthroplasty Plan Plan of Care Appreciate hospitalist evaluation of syncopal episode, final troponin result pending, patient has no current symptoms and is getting along well Continue mobilize with physical therapy, Coumadin anticoagulation Anticipate home on discharge with outpatient physical therapy when medically stable and cleared hospitalist avila Justicifation of Admission Dx: Justifications for Admission: Justification of Admission Dx: Yes (Currently still evaluating syncopal episode with troponin values and pending hospitalist follow and conclusions) TIESHA CESAR MD Apr 03, 2020 09:03
--- NOTE | 2020-04-03 11:08 | NUR ---
Pharmacy Warfarin Dosing Note S: Pharmacy consulted to assist with anticoagulation therapy started 04/01/20 O: YADIEL BLEDSOE is a 60 year old M with TKA LABS: Last INR: 1.4 Last HGB: 10.9 Last HCT: 31.4 Last PLT: 284 Last dose of 7.5 mg given on 04/02/20 at 1703 A:INR of 1.4 is below desired range. Target range for this patient is: 1.6 - 2.5 P: Warfarin dose: 4 mg Prior to Discharge and daily Bridge Therapy: None Next INR due Tuesday04/07/20 Pharmacy anticoagulation service will continue to follow. Apple Marrero RPH, 04/03/20 [id number]
[2020-04-03] MEDS ORDERED: WARF4TAB64 PO (11:19)
--- NOTE | 2020-04-03 12:09 | NUR ---
tolerated the 1st rehab session without incident. ready for home. pharmacist here to explain coumadin
--- NOTE | 2020-04-03 12:11 | NUR ---
Refused tramadol, states not having any pain.
[2020-04-03] MEDS ORDERED: WARFARIN 4 MG TABLET. PO ONE (14:00)
--- NOTE | 2020-04-03 14:13 | PDOC ---
[employer] PROGRESS NOTE Date of Service DOS: DATE: 04/03/20 TIME: 14:09 Chief Complaint Chief Complaint Syncope - vasovagal given his vital signs and response to fluids and laying supine. On DVT ppx with warfarin, no concern for PE. Will trend cardiac enzymes given TWI which could be demand ischemia from syncopal event. No indication for head imaging given normal neuro examination. Trend Hb as well Tricompartmental osteoarthritis, right knee - s/p right TKA with no complications Anemia - blood loss, on iron, will trend. FEN - General diet PPX - warfarin FULL CODE Dispo - Observation post-op History of Present Illness History of Present Illness Mr Enrique is a 60yo M retired [employer] with no PMHx who was admitted for right TKA for progressive OA not responsive to synthetic hyaluronic acid injections or corticosteroid injections. He is s/p TKA on 04/01/2020 and Internal Medicine has been consulted for a syncopal episode with associated hypotension. His is bedside, notes that 30 minutes after taking MVI, iron this morning his BP was in the 70s and he passed out while sitting up in his chair. He awakened after 250cc of NSS and laying supine for 15 minutes. He does note prior h/o vasovagal syncope when he was younger in the [employer]. He had a treadmill cardiac stress test negative for EKG changes last week and pre-op EKG with no abnormalities Repeat EKG today does show TWI in lead II and I. He has no CP or SOB. HR in 50s, BP 120 systolic now. Pain well controlled. has not had a BM, notes he was waiting until he gets home, is a bit anxious. Hb post-op 12. He wants to get out of the hospital soon and get back on his bicycle 04/03/2020 Patient evaluated bedside. He is denies any further syncopal episodes. Still anxious to discharge today. Serial troponins negative x3. He may discharge home on warfarin with close PCP follow-up, discussed with RN. Vitals/I&O Vitals/I&O: Vital Signs Date Time Temp Pulse Resp B/P (MAP) Pulse Ox O2 Delivery O2 Flow Rate FiO2 04/03/20 12:00 Room Air 04/03/20 07:03 20 04/03/20 05:55 98.7 86 146/76 (99) 97 98.7 I & O 04/02/20 04/02/20 04/03/20 15:00 23:00 07:00 Intake Total 840 ml 520 ml 300 ml Output Total 210 ml 120 ml Balance 630 ml 400 ml 300 ml Physical Exam General: Alert, Oriented X3, Cooperative, No acute distress Heart: Regular rate, Normal S1, Normal S2, No murmurs Abdomen: Normal bowel sounds, Soft, No tenderness, No hepatosplenomegaly, No masses Extremities: No clubbing, No cyanosis, No edema, Normal pulses, Other (Right knee in ZHANE wrap) Skin: No rashes, No breakdown Labs Labs: Laboratory Tests Test 04/02/20 19:00 04/03/20 04:40 White Blood Count 12.0 x10^3/uL (4.0-11.0) Red Blood Count 3.55 x10^6/uL (4.30-5.70) Hemoglobin 10.9 g/dL (13.0-17.5) 10.9 g/dL (13.0-17.5) Hematocrit 31.9 % (39.0-53.0) 31.4 % (39.0-53.0) Mean Corpuscular Volume 90 fL (79-100) Mean Corpuscular Hemoglobin 31 pg (25-35) Mean Corpuscular Hemoglobin Concent 34 g/dL (31-37) 35 g/dL (31-37) Red Cell Distribution Width 12.6 % (11.5-14.5) Platelet Count 277 x10^3/uL (140-400) Troponin I Quantitative < 0.017 ng/mL (0.000-0.055) < 0.017 ng/mL (0.000-0.055) Prothrombin Time 16.5 SEC (11.7-14.0) Prothromb Time International Ratio 1.4 (0.8-1.1) Review of Systems Review of Systems: Denies chest pain, denies shortness of breath, denies fever. Assessment and Plan Problems: (1) Degenerative arthritis of right knee Comment Review of Relevant I have reviewed the following items pako (where applicable) has been applied. Medications: Current Medications Medications (Trade) Dose Ordered Sig/Cherie Route PRN Reason Start Time Stop Time Status Last Admin Dose Admin Warfarin Sodium (Coumadin) 5 mg 1X WARF ONCE PO 04/02/20 16:00 04/02/20 16:01 DC 04/02/20 17:03 Justifications for Admission Other Justification WHITNEY CARL MD Apr 03, 2020 14:13
[2020-04-03 14:30] VITALS: BP 146/81
--- NOTE | 2020-04-03 14:45 | NUR ---
tolerated 2nd session without problems. ready to go home. at bedside. reviewed discharge instructions regarding restrictions to activities of daily living such as showers, incisional care walker and medications (oxycodone and Coumadin along with blood draws. both verbalized understanding of these instructions. saline lock removed.
--- NOTE | 2020-04-04 19:07 | PATHOLOGY ---
[facility] Accession Number: [id number] . 01 Material submitted: . knee - RIGHT KNEE TISSUE AND BONE. Modifiers: right . 01 Clinical history: . TRICOMPARTMENT OSTEOARTHRITIS, DEGENERATIVE ARTHRITIS . 02 Diagnosis: Segments of bone and soft tissue, right knee arthroplasty: - Degenerative arthritis. ([facility] 04/04/2020) . QTP 04/04/2020 1226 Local . 02 Electronically signed: . Charbel Castano MD, Pathologist NPI- [id number] . 01 Gross description: . Received in formalin labeled "Jd Enrique, right knee tissue and bone" are multiple portions of gunter-white bone and scant adherent yellow-gunter fibroadipose tissue measuring in aggregate 15.7 x 12.5 x 2.6 cm. Multiple gunter-white roughened/eburnated articular surfaces are present. The remaining surfaces have smooth surgical margins. Two gunter-white nodular possible loose bodies are also present, measuring 2.9 and 3.2 cm in greatest dimension. Elevator Troubleshooter tissue is submitted in cassettes A1-A3 following decalcification. [place] [facility] 04/03/2020 1146 Local . 02 Pathologist provided ICD-10: M17.11 . 02 CPT . 438599, [id number] Specimen Comment: A courtesy copy of this report has been sent to [phone], [phone] Specimen Comment: [id number] Specimen Comment: Report sent to / DR REGAN Performed at: 01 [facility] [address], [place], [place] [id number] MD Rafi Farrar MD Phone: [phone] Performed at: 02 [facility] [address] [place], [place] [id number] MD Charbel Castano MD Phone: [phone]
--- NOTE | 2020-04-04 20:53 | DS ---
DATE OF DISCHARGE: 04/03/2020 ORTHOPEDIC DISCHARGE SUMMARY PRINCIPAL DIAGNOSIS: Degenerative joint disease of right knee. PROCEDURE: Right total knee arthroplasty. DISPOSITION: To home with outpatient physical therapy. DISPOSITION MEDICATIONS: Include oxycodone 5 mg p.o. p.r.n. q. 4 hours; Coumadin as directed by Anticoagulation Clinic, currently 4 mg dose daily. Resume Em, meloxicam, and multivitamin. Stop glucosamine. DISCHARGE INSTRUCTIONS: Follow up with Dr. Sunshine in 2 weeks postop. ACTIVITY: Weightbearing as tolerated, standard total knee precautions. Maintain RONY dressing, call if saturated. Cut and tape over tail of dressing when suction machine quits. BRIEF DESCRIPTION OF HOSPITAL COURSE: The patient underwent uneventful right total knee arthroplasty. Postoperatively, although his vital signs were stable and hemoglobin in 11 to 12 range, he had a passing out episode twice in physical therapy. He was examined by Dr. Redd, hospitalist, and underwent some cardiac enzyme testing due to some EKG concerns, but really never had any cardiac-type history or findings. This was determined to be a vasovagal episode with negative cardiac enzymes and he continued through his physical therapy, maintained medically stable throughout and was discharged home in stable condition. TIESHA SUNSHINE MD DR: LOUISE/giovany JOB#: [id number] / [id number]
== END 2020-04-03 15:00 | disposition home or self-care (01) ==
LOC: SURG 10:25 → 4 SOUTHEST 16:36
PROVIDERS: ADMIT Orthopaedic Surgery; ATTEND Orthopaedic Surgery
DX: M17.11 Unilateral primary osteoarthritis, right knee (principal); D64.9 Anemia, unspecified; I95.9 Hypotension, unspecified; R55 Syncope and collapse; Z23 Encounter for immunization; Z96.651 Presence of right artificial knee joint; Z98.890 Other specified postprocedural states; Z79.01 Long term (current) use of anticoagulants
CPT/HCPCS: 27447; 36415; 73560; 84484; 85014; 85018; 85027; 85610; 85730; 86850; 86900; 86901; 90471; 90686; 93005; 97110; 97116; 97150; 97162; 97165; 97530; 97535; A7015; C1713; C1769; C1776; G0378; G0379; J0171; J0690; J1100; J1885; J2250; J2270; J2405; J2704; J2710; J2795; J3010; J3370; J3490; J7030; J7120; 96365; 96366; 96376